=== PATIENT | male | born 1960 | race Caucasian/White ===

== ENCOUNTER 2018-06-02 12:33 | Emergency (ER) | payer OTHER ==
[2018-06-02] MEDS ORDERED: LOVASTATIN20 M1 PO (13:25)
[2018-06-02] MEDS ORDERED: METOPROLOL SUCC50 M2 PO (13:26)
[2018-06-02] MEDS ORDERED: QUINAPRIL HCL40 M1 PO (13:27)
[2018-06-02] MEDS ORDERED: AMLODIPINE BESYL5 M1 PO (13:27)
[2018-06-02] MEDS ORDERED: HYDROCHLOROTHIA25 M1 PO (13:28)
[2018-06-02] MEDS ORDERED: FLUOXETINE HCL20 M2 PO (13:28)
[2018-06-02] MEDS ORDERED: TRAZODONE HCL100 M1 PO (13:28)
[2018-06-02 13:30] LABS: ABSOLUTE BASOPHIL COUNT 0.1 /CUMM (0.0-0.2); ABSOLUTE EOSINOPHIL COUNT 0 /CUMM (0.0-0.7); ABSOLUTE LYMPH COUNT 2.7 /CUMM (1.2-3.4); ABSOLUTE MONOCYTE COUNT 0.8 /CUMM (0.10-0.60); BASOPHIL % 0.7 % (0.0-2.0); EOSINOPHIL % 0.1 % (0-5); GRANULOCYTE % 58.8 % (42.2-75.2); HEMATOCRIT 50.3 % (42-52); MEAN CORPUSCULAR VOLUME 94.3 FL (80.0-94.0); MEAN PLATELET VOLUME 8.1 FL (7.4-10.4); PLATELET COUNT 222 /CUMM (130-400); RBC DISTRIBUTION WIDTH 13.4 % (11.5-14.5); RED BLOOD CELL CT 5.33 /CUMM (4.70-6.10); WHITE BLOOD CELL COUNT 8.5 /CUMM (4.8-10.8)
--- NOTE | 2018-06-02 13:54 | ED PSYCHIATRIC COMPLAINT ---
History of Present Illness General Chief Complaint: ETOH/Drug Related Complaint Stated Complaint: ETOH ? SI Source: patient, EMS, police Exam Limitations: RELUCTANT HISTORIAN Vital Signs & Intake/Output Vital Signs & Intake/Output Vital Signs Date Time Temp Pulse Resp B/P B/P Pulse O2 O2 Flow FiO2 Mean Ox Delivery Rate 06/02 1657 97.5 64 18 138/70 06/02 1657 97.5 64 18 138/70 97 06/02 1345 98.5 52 18 135/73 97 06/02 1302 98.2 118 20 144/98 92 Allergies Coded Allergies: No Known Allergies (06/02/18) Reconcile Medications Amlodipine Besylate 5 MG TABLET 1 TAB PO DAILY HEART (Reported) Fluoxetine HCl 20 MG CAPSULE 2 CAP PO DAILY MENTAL HEALTH (Reported) Hydrochlorothiazide 25 MG TABLET 1 TAB PO DAILY WATER RETENTION (Reported) Lovastatin 20 MG TABLET 1 TAB PO DAILY CHOLESTEROL (Reported) Metoprolol Succinate 50 MG TAB.ER.24H 0.5 TAB PO DAILY HEART (Reported) Quinapril HCl 40 MG TABLET 2 TAB PO DAILY HEART (Reported) Trazodone HCl 100 MG TABLET 1 TAB PO QPM SLEEP (Reported) Triage Note: PT BIBA ON PEER S/P FAMILY MEMBER CALLED 911 STATING THEY HADN'T HEARD FROM HIM SINCE SATURDAY. PER PD PT STATED HE DIDN'T WANT TO DO ANYTHING BUT TO GO TO SLEEP AND THAT HE WAS VERY INTOXICATED AND CONFUSED TO TIME. PT CURRENTLY DENIES SI/HI. PER , INVESTIGATORS CALLED TO REPORT PT HAS FIREARMS LOCKED IN A SAFE AT HOME. PT WANDED AND CHANGED ON ARRIVAL. Triage Nurses Notes Reviewed? yes HPI: Patient presents for evaluation of alcohol intoxication. Patient is somewhat reluctant to provide history. He feels that his family likely called 911 because of his intoxication. He offers no complaint at this time. He states he doesn't feel the need to be here. He wishes to go home. He does admit to daily alcohol use. Past History Travel History Traveled to [place] past 21 day No Medical History Any Pertinent Medical History? 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 No Review of Systems Review of Systems Constitutional: Reports: no symptoms. EENTM: Reports: no symptoms. Respiratory: Reports: no symptoms. Cardiovascular: Reports: no symptoms. GI: Reports: no symptoms. Genitourinary: Reports: no symptoms. Musculoskeletal: Reports: no symptoms. Skin: Reports: no symptoms. Neurological/Psychological: Reports: no symptoms. Hematologic/Endocrine: Reports: no symptoms. Immunologic/Allergic: Reports: no symptoms. All Other Systems: Reviewed and Negative Physical Exam Physical Exam General Appearance: SEE BELOW Neurological/Psychiatric: SEE BELOW Comments: General: Alert, calm, cooperative Head: Normocephalic, atraumatic Eyes: Normal inspection, mild horizontal nystagmus with lateral gaze, EOMI Ears: Normal inspection Nose: Normal inspection Throat: Moist mucosa Neck: Supple, no goiter Heart: Regular rate and rhythm, no murmurs rubs or gallops Lungs: Clear to auscultation bilaterally with good air entry Abdomen: Soft nontender nondistended, normal bowel sounds Chest: Nontender Extremities: Normal range of motion grossly, no tremors present, no cyanosis clubbing or edema of the upper extremities Neurologic: cranial nerves II through XII grossly intact, speech clear, gait normal Psychiatric: No apparent delusions or hallucinations, no pressured speech or thought blocking SAD PERSONS Done? patient not suicidal Progress Differential Diagnosis: SUICIDE IDEATION, HOMICIDE IDEATION, DEPRESSION, ALCOHOL INTOXICATION, DRUG INTOXICATION, POOR IMPULSE CONTROL Plan of Care: Orders Procedure Date/time Status Patient Safety Monitor 06/02 1353 Active URINE DRUG SCREEN FOR ER ONLY 06/02 1254 Complete ETHANOL 06/02 1254 Complete COMPREHENSIVE METABOLIC PANEL 06/02 1254 Complete CBC WITHOUT DIFFERENTIAL 06/02 1254 Complete Laboratory Tests 06/02/18 1447: Urine Opiates Screen < 100, Methadone Screen < 40, Barbiturate Screen < 60, Ur Phencyclidine Scrn < 6.00, Amphetamines Screen < 100, U Benzodiazepines Scrn < 85, Urine Cocaine Screen < 50, Urine Cannabis Screen < 5.00 06/02/18 1317: Anion Gap 25 H, Estimated GFR > 60, BUN/Creatinine Ratio 21.3, Glucose 97, Calcium 8.6, Total Bilirubin 0.9, AST 53, ALT 96 H, Alkaline Phosphatase 73, Total Protein 7.2, Albumin 4.6, Globulin 2.6, Albumin/Globulin Ratio 1.8, CBC w Diff NO MAN DIFF REQ, RBC 5.33, MCV 94.3 H, MCH 33.0 H, MCHC 35.0, RDW 13.4, MPV 8.1, Gran % 58.8, Lymphocytes % 31.5, Monocytes % 8.9, Eosinophils % 0.1, Basophils % 0.7, Absolute Granulocytes 5.0, Absolute Lymphocytes 2.7, Absolute Monocytes 0.8 H, Absolute Eosinophils 0, Absolute Basophils 0.1, Serum Alcohol 277.0 Comments: 06/02/2018 6:14:25 PM I have updated [facility] on test results. Medically he seems sober. He denies SI or HI. When confronted with his comments "I just want to go to sleep" he denies that this was an allusion to suicide (he does seem genuine in this declination). He has declined crisis evaluation. He has contacted his sister who will take him home in roughly 2 hours. Departure Departure Disposition: HOME OR SELF CARE Condition: Stable Clinical Impression Primary Impression: Alcohol intoxication Qualifiers: Complication of substance-induced condition: uncomplicated Qualified Code: F10.920 - Alcohol use, unspecified with intoxication, uncomplicated Referrals: [place] RAMOS,Freedom Castillo (PCP/Family) Additional Instructions: Cut down on your drinking. Consider detox program or counseling. Follow-up with your primary care physician this week for reevaluation. Return if any concerns or sudden worsening. Departure Forms: COUNSELING SERVICES REFERENCE Customer Survey DETOX FACILITIES LIST General Discharge Information
[2018-06-02 19:56] VITALS: BP 132/81
== END 2018-06-02 19:57 ==
LOC: ERH 12:33
PROVIDERS: Emergency Medicine
DX: F10.129 Alcohol abuse with intoxication, unspecified (principal)
CPT/HCPCS: 80307; G0480; J3101